=== PATIENT | female | born 1985 | race Asian ===

== ENCOUNTER 2018-12-23 11:47 | Outpatient (CLI) | payer OTHER ==
[2018-12-23 12:43] LABS: BASOPHILS # (AUTO) 0.1 K/uL (0.00-0.22); BASOPHILS % (AUTO) 0.6 % (0.0-2.0); EOSINOPHILS # (AUTO) 0.2 K/uL (0-0.4); EOSINOPHILS % (AUTO) 2.1 % (0.0-4.0); HEMATOCRIT 39.6 % (36-48); HEMOGLOBIN 13.3 g/dL (12.0-16.0); LYMPHOCYTES # (AUTO) 1.4 K/uL (2.5-16.5); LYMPHOCYTES % (AUTO) 13.2 % (20.5-51.1); MEAN CORPUSCULAR HEMOGLOBIN 29 pg (27-31); MEAN CORPUSCULAR HGB CONC 34 g/dL (33-37); MEAN CORPUSCULAR VOLUME 87.4 fL (80-94); MONOCYTES # (AUTO) 0.5 K/uL (0.8-1.0); MONOCYTES % (AUTO) 4.6 % (1.7-9.3); NEUTROPHILS # (AUTO) 8.5 K/uL (1.8-7.7); NEUTROPHILS % (AUTO) 79.5 % (42.2-75.2); PLATELET COUNT (AUTO) 296 K/uL (140-450); RED BLOOD CELL COUNT(AUTO) 4.53 MIL/uL (4.20-5.40); RED CELL DISTRIBUTION WIDTH 14.5 % (11.6-13.7); WHITE BLOOD COUNT (AUTO) 10.7 K/uL (4.8-10.8)
[2018-12-23 13:48] LABS: APPEARANCE,URINE CLEAR (CLEAR); BILIRUBIN,URINE NEGATIVE (NEGATIVE); BLOOD, URINE NEGATIVE (NEGATIVE); COLOR,URINE YELLOW (YELLOW); LEUKOCYTE ESTERASE ,URINE NEGATIVE (NEGATIVE); NITRITE, URINE NEGATIVE (NEGATIVE); PH,URINE 6.5 (5.0-9.0); UGLUCOSE NEGATIVE (NEGATIVE)
[2018-12-23 13:59] LABS: BARBITURATE, URINE NEG. ng/ml (NEG <=200); BENZODIAZEPINE, URINE NEG. ng/mL (NEG <=200); CANNABINOID, URINE NEG. ng/mL (NEG <=50); COCAINE, URINE NEG. ng/mL (NEG <=300); OPIATE, URINE NEG. ng/mL (NEG <=2000); PHENCYCLIDINE SCREEN,URINE NEG. ng/mL (NEG <=25)
[2018-12-24 09:15] LABS: HEPATITIS B SURFACE ANTIGEN Negative (Negative)
== END 2018-12-23 20:38 | disposition home or self-care (01) ==
LOC: MLB 11:47
PROVIDERS: ATTEND Obstetrics & Gynecology
DX: Z34.91 Encounter for supervision of normal pregnancy, unspecified, first trimester (principal); Z3A.01 Less than 8 weeks gestation of pregnancy
CPT/HCPCS: 36415; 80305; 81003; 82947; 84702; 85025; 86592; 86702; 86762; 86886; 86900; 86901; 87086; 87340

== ENCOUNTER 2019-01-04 10:51 | Emergency (ER) | payer OTHER ==
[~2019-01-04] VITALS: Ht 162.6 cm; Wt 45.4 kg
[2019-01-04 10:57] VITALS: BP 140/86
--- NOTE | 2019-01-04 11:08 | NUR ---
Patient ambulated to bed 7 with family. RN evaluating patient at bedside.
--- NOTE | 2019-01-04 11:17 | NUR ---
PT IS 8WEEKS AND 5 DAYS , [place] 08/11/19, LMP 11/04/18. C/O HEADACHE, NAUSEA, ABD CRAMPS, CONSTIPATION, FATIGUE. PT REPORTS LOWER ABD PAIN AT 4/10. PT REPORTS NON-ODOROUS WHITE YELLOWISH DISCHARGE X2 MONTH.
--- NOTE | 2019-01-04 11:19 | NUR ---
Dr. Morrison evaluating patient at bedside.
[2019-01-04 12:16] LABS: BILIRUBIN,URINE NEGATIVE (NEGATIVE); BLOOD, URINE NEGATIVE (NEGATIVE); COLOR,URINE YELLOW (YELLOW); LEUKOCYTE ESTERASE ,URINE NEGATIVE (NEGATIVE); NITRITE, URINE NEGATIVE (NEGATIVE); PH,URINE 7.5 (5.0-9.0); UGLUCOSE NEGATIVE (NEGATIVE)
[2019-01-04 12:16] LABS: BASOPHILS # (AUTO) 0.1 K/uL (0.00-0.22); BASOPHILS % (AUTO) 0.7 % (0.0-2.0); EOSINOPHILS # (AUTO) 0.3 K/uL (0-0.4); EOSINOPHILS % (AUTO) 3.1 % (0.0-4.0); HEMATOCRIT 37.5 % (36-48); HEMOGLOBIN 12.7 g/dL (12.0-16.0); LYMPHOCYTES # (AUTO) 1.6 K/uL (2.5-16.5); LYMPHOCYTES % (AUTO) 16.7 % (20.5-51.1); MEAN CORPUSCULAR HEMOGLOBIN 29 pg (27-31); MEAN CORPUSCULAR HGB CONC 34 g/dL (33-37); MEAN CORPUSCULAR VOLUME 86.4 fL (80-94); MONOCYTES # (AUTO) 0.6 K/uL (0.8-1.0); MONOCYTES % (AUTO) 6.3 % (1.7-9.3); NEUTROPHILS % (AUTO) 73.2 % (42.2-75.2); PLATELET COUNT (AUTO) 239 K/uL (140-450); RED BLOOD CELL COUNT(AUTO) 4.34 MIL/uL (4.20-5.40); RED CELL DISTRIBUTION WIDTH 14.6 % (11.6-13.7); WHITE BLOOD COUNT (AUTO) 9.6 K/uL (4.8-10.8)
[2019-01-04 12:24] LABS: APPEARANCE,URINE CLEAR (CLEAR)
--- NOTE | 2019-01-04 12:29 | NUR ---
L&D RN STATING UNABLE TO ATTEMPT FHT AT PT'S CURRENT WEEKS OF GESTATION TOO EARLY TO FIND---MD NOTIFIED ASKED TO ATTEMPT--- NURSE WILL CALL ME BACK
[2019-01-04 12:38] LABS: ANION GAP 11.5 (8-16); CARBON DIOXIDE 25.8 mmol/L (21-32); CREATININE 0.7 mg/dL (0.6-1.3); POTASSIUM 4.3 mmol/L (3.5-5.1)
[2019-01-04 12:43] LABS: ALBUMIN 3.1 g/dL (3.4-5.0); TOTAL BILIRUBIN 0.2 mg/dL (0.0-1.0)
--- NOTE | 2019-01-04 13:39 | NUR ---
US tech at bedside.
[2019-01-04 15:36] VITALS: BP 140/86
--- NOTE | 2019-01-04 15:39 | NUR ---
Patient discharged with v/s stable. Written and verbal after care instructions given and explained. Patient verbalized understanding. Ambulatory with steady gait. All questions addressed prior to discharge. Advised to follow up with PMD.
== END 2019-01-04 15:39 | disposition home or self-care (01) ==
LOC: MED 10:51
DX: O26.891 Other specified pregnancy related conditions, first trimester (principal); R10.13 Epigastric pain; O21.9 Vomiting of pregnancy, unspecified; M54.9 Dorsalgia, unspecified; R35.8 Other polyuria; Z3A.08 8 weeks gestation of pregnancy
CPT/HCPCS: 36415; 76817; 80053; 81003; 81025; 83690; 85025; 99284; Q0092

== ENCOUNTER 2019-02-01 10:24 | Emergency (ER) | payer OTHER ==
[~2019-02-01] VITALS: Ht 149.9 cm; Wt 44.5 kg
[2019-02-01 10:41] VITALS: BP 129/77
--- NOTE | 2019-02-01 10:46 | NUR ---
TRIGED TO LOBBY; LARISAS
--- NOTE | 2019-02-01 11:00 | NUR ---
BIB SELF. AAO X4 C/O NAUSEA, VOMITING, HEADACHE X 1 DAY. PT REPORTS 12 WEEKS , LMP 11/04/2018. AFEBRILE. DENIES SOB. STEADY GAIT. HOB UP. BED SIDE RAILS UP X1. ON LOW BED POSITON, LOCKED. ER MADE AWARE OF PT STATUS.
[2019-02-01] MEDS ORDERED: MULTIVITAMIN-12 10 ML, THIAMINE 100 MG, MAGNESIUM SULFATE 50% 2,000 MG, FOLIC ACID 5 MG... IV ONE ×5 (11:43)
[2019-02-01] MEDS ORDERED: ONDANSETRON 4 MG/2 ML VIAL IVP ONE (11:45)
[2019-02-01] MEDS ORDERED: DEXT 5% / LACT RING 1,000 ML IV ONE (11:45)
[2019-02-01] MEDS ORDERED: PROMETHAZINE 25 MG/ML VIAL IM ONE (11:45)
[2019-02-01] MEDS ORDERED: FAMOTIDINE 20 MG/2 ML VIAL IVP ONE (11:45)
--- NOTE | 2019-02-01 11:48 | NUR ---
DR ROJAS AT BEDSIDE FOR PT EVALUATION
--- NOTE | 2019-02-01 12:00 | NUR ---
PT AAO X4. FULL CLEAR SPEECH. DENIES N/V AT THIS TIME. NO SIGNS AND SYMPTOMS OF DISTRESS NOTED. WILL CONTINUE TO MONITOR.
[2019-02-01 12:23] LABS: BASOPHILS # (AUTO) 0.1 K/uL (0.00-0.22); BASOPHILS % (AUTO) 0.5 % (0.0-2.0); EOSINOPHILS # (AUTO) 0.1 K/uL (0-0.4); EOSINOPHILS % (AUTO) 1.1 % (0.0-4.0); HEMATOCRIT 39.4 % (36-48); HEMOGLOBIN 13.4 g/dL (12.0-16.0); LYMPHOCYTES # (AUTO) 1.6 K/uL (2.5-16.5); LYMPHOCYTES % (AUTO) 15.8 % (20.5-51.1); MEAN CORPUSCULAR HEMOGLOBIN 29 pg (27-31); MEAN CORPUSCULAR HGB CONC 34 g/dL (33-37); MEAN CORPUSCULAR VOLUME 86.3 fL (80-94); MONOCYTES # (AUTO) 0.5 K/uL (0.8-1.0); MONOCYTES % (AUTO) 4.5 % (1.7-9.3); NEUTROPHILS % (AUTO) 78.1 % (42.2-75.2); PLATELET COUNT (AUTO) 271 K/uL (140-450); RED BLOOD CELL COUNT(AUTO) 4.56 MIL/uL (4.20-5.40); RED CELL DISTRIBUTION WIDTH 13.9 % (11.6-13.7); WHITE BLOOD COUNT (AUTO) 10.3 K/uL (4.8-10.8)
[2019-02-01 12:24] LABS: BILIRUBIN,URINE NEGATIVE (NEGATIVE); BLOOD, URINE NEGATIVE (NEGATIVE); COLOR,URINE YELLOW (YELLOW); NITRITE, URINE NEGATIVE (NEGATIVE); UGLUCOSE NEGATIVE (NEGATIVE)
--- NOTE | 2019-02-01 12:40 | NUR ---
CALLED PHARMACY FOR BANANA BAG ORDERED.
[2019-02-01] MEDS ORDERED: FOLIC ACID 5 MG/ML SYR ONE (12:42)
[2019-02-01] MEDS ORDERED: THIAMINE 200 MG/2 ML VIAL ONE (12:42)
[2019-02-01] MEDS ORDERED: MULTIVITAMIN-12 10 ML VIAL IV ONE (12:42)
[2019-02-01 13:02] LABS: RBC,URINE 0-5 /HPF (0-5); WBC,URINE 0-5 /HPF (0-5)
[2019-02-01 13:03] LABS: APPEARANCE,URINE CLEAR (CLEAR); LEUKOCYTE ESTERASE ,URINE 1+ (NEGATIVE)
[2019-02-01 13:06] LABS: ANION GAP 10.1 (8-16); CARBON DIOXIDE 27.6 mmol/L (21-32); POTASSIUM 3.7 mmol/L (3.5-5.1)
[2019-02-01 13:07] LABS: CREATININE 0.6 mg/dL (0.6-1.3)
[2019-02-01 13:19] LABS: ACETONE, SERUM NEGATIVE (NEGATIVE)
[2019-02-01 13:35] LABS: ALBUMIN 3.3 g/dL (3.4-5.0); TOTAL BILIRUBIN 0.2 mg/dL (0.0-1.0)
--- NOTE | 2019-02-01 13:38 | NUR ---
RECEIVED BANANA BAG FROM PHARMACY
--- NOTE | 2019-02-01 13:45 | NUR ---
PT AMBULATED TO THE BATHROOM WITH STEADY GAIT. DENIES DIZZINESS.
--- NOTE | 2019-02-01 15:41 | NUR ---
VERBAL ORDER FROM DR ROJAS BOLUS BANANA BAG AND D5 LR 1000 ML.
--- NOTE | 2019-02-01 16:00 | NUR ---
PT OFFERED CRACKERS, APPLE SAUCE AND APPLE JUICE. PT TOLERATED WELL. DENIES N/V AT THIS TIME.
[2019-02-01 17:50] VITALS: BP 124/75
--- NOTE | 2019-02-01 17:50 | NUR ---
Patient discharged with v/s stable. Written and verbal after care instructions given and explained. Patient alert, oriented and verbalized understanding of instructions. Ambulatory with steady gait. All questions addressed prior to discharge. ID band removed. Patient advised to follow up with PMD. Rx of [facility] DHA, Zofran given. Patient educated on indication of medication including possible reaction and side effects. Opportunity to ask questions provided and answered.
== END 2019-02-01 17:50 | disposition home or self-care (01) ==
LOC: MED 10:24
DX: O21.1 Hyperemesis gravidarum with metabolic disturbance (principal); Z3A.12 12 weeks gestation of pregnancy; Z98.890 Other specified postprocedural states
CPT/HCPCS: 36415; 76817; 80053; 81001; 82009; 83605; 83735; 84702; 85025; 86900; 86901; 87086; 96361; 96365; 96366; 96372; 96375; 99284; A9153; J2405; J2550; J3411; J3475; J3490; J7030; Q0092

== ENCOUNTER 2019-04-28 09:21 | Outpatient (CLI) | payer OTHER ==
[2019-04-28 10:52] LABS: GLUCOSE,FASTING GESTATIONAL 80 mg/dL (70-110)
[2019-04-28 11:38] LABS: BASOPHILS % (AUTO) 0.2 % (0.0-2.0); EOSINOPHILS # (AUTO) 0.1 K/uL (0-0.4); EOSINOPHILS % (AUTO) 0.9 % (0.0-4.0); HEMATOCRIT 36.2 % (36-48); HEMOGLOBIN 12.2 g/dL (12.0-16.0); LYMPHOCYTES # (AUTO) 1.3 K/uL (2.5-16.5); LYMPHOCYTES % (AUTO) 12.4 % (20.5-51.1); MEAN CORPUSCULAR HEMOGLOBIN 31 pg (27-31); MEAN CORPUSCULAR HGB CONC 34 g/dL (33-37); MONOCYTES # (AUTO) 0.5 K/uL (0.8-1.0); MONOCYTES % (AUTO) 5.1 % (1.7-9.3); NEUTROPHILS # (AUTO) 8.2 K/uL (1.8-7.7); NEUTROPHILS % (AUTO) 81.4 % (42.2-75.2); PLATELET COUNT (AUTO) 274 K/uL (140-450); RED BLOOD CELL COUNT(AUTO) 3.98 MIL/uL (4.20-5.40); RED CELL DISTRIBUTION WIDTH 14.2 % (11.6-13.7); WHITE BLOOD COUNT (AUTO) 10.1 K/uL (4.8-10.8)
== END 2019-04-28 20:46 | disposition home or self-care (01) ==
LOC: MLB 09:21
PROVIDERS: ATTEND Obstetrics & Gynecology
DX: O44.12 Complete placenta previa with hemorrhage, second trimester (principal); Z3A.26 26 weeks gestation of pregnancy
CPT/HCPCS: 36415; 82951; 85025

== ENCOUNTER 2019-04-30 14:43 | Outpatient (CLI) | payer OTHER | END 2019-04-30 21:06 | disposition home or self-care (01) | LOC: MUS 14:43 | DX: O32.1XX0 Maternal care for breech presentation, not applicable or unspecified (principal); Z3A.24 24 weeks gestation of pregnancy | CPT/HCPCS: 76805; Q0092 ==